=== PATIENT | female | born 2005 | race Caucasian/White ===

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

== ENCOUNTER → 2023-01-15 | Outpatient (CLI) | payer BC | LOC: M CARPUL 08:21 | PROVIDERS: ATTEND Nurse Practitioner Family | DX: R00.2 Palpitations (principal); R07.9 Chest pain, unspecified ==

== ENCOUNTER → 2023-02-27 | Outpatient (CLI) | payer BC | LOC: M CARPUL 10:37 | PROVIDERS: ATTEND Internal Medicine Cardiovascular Disease | DX: R06.09 Other forms of dyspnea (principal) ==

== ENCOUNTER → 2023-11-12 | Outpatient (REF) | payer BC ==
[~2023-11-12] MED LIST changes: +DOXY-440 PO; -DOXY-444 PO
[2023-11-12 14:10] LABS: PERCENT SATURATION 40.8 % (13.2-45.0)
[2023-11-12 14:11] LABS: FERRITIN 16.2 NG/ML (7.3-270.7)
== END ==
LOC: M LAB REF 12:56
PROVIDERS: ATTEND Internal Medicine
DX: E61.1 Iron deficiency (principal)

== ENCOUNTER → 2024-01-15 | Outpatient (CLI) | payer BC | LOC: M WUC 09:14 | PROVIDERS: ATTEND Physician Assistant | DX: S76.001A Unspecified injury of muscle, fascia and tendon of right hip, initial encounter (principal); W18.30XA Fall on same level, unspecified, initial encounter; Y92.009 Unspecified place in unspecified non-institutional (private) residence as the place of occurrence of the external cause ==

== ENCOUNTER → 2024-11-24 | Outpatient (CLI) | payer BC | LOC: M SOG 07:07 | PROVIDERS: ATTEND Physician Assistant | DX: M25.551 Pain in right hip (principal) ==

== ENCOUNTER → 2024-11-26 | Outpatient (CLI) | payer BC | LOC: M RAD 08:46 | PROVIDERS: ATTEND Physician Assistant Medical | DX: S09.92XA Unspecified injury of nose, initial encounter (principal); Y92.9 Unspecified place or not applicable; Y93.9 Activity, unspecified; Y99.9 Unspecified external cause status; X58.XXXA Exposure to other specified factors, initial encounter ==